=== PATIENT | male | born 1965 | race Caucasian/White ===

== ENCOUNTER 2018-05-04 23:53 | Emergency (ER) | payer SELFPAY ==
[~2018-05-04] VITALS: Ht 180.3 cm; Wt 90.9 kg
[2018-05-05 00:20] VITALS: BP 128/86
== END 2018-05-05 00:50 | disposition home or self-care (01) ==
LOC: EMS 23:57
DX: K59.00 Constipation, unspecified (principal); G62.9 Polyneuropathy, unspecified